=== PATIENT | female | born 1975 | race Asian ===

== ENCOUNTER 2018-12-04 12:00 | Emergency (ER) | payer SELFPAY ==
[~2018-12-04] VITALS: Ht 165.1 cm; Wt 57.3 kg
[2018-12-04 12:06] VITALS: Ht 165.1 cm; Wt 57.3 kg
[2018-12-04 12:35] LABS: BASOPHIL % 0.5 % (0-2); PLATELET COUNT 263 x10^3mcL (130-400)
[2018-12-04 12:37] LABS: RED CELL DISTRIBUTION WIDTH 20.6 % (11.5-14.5)
[2018-12-04 14:36] VITALS: BP 119/63
== END 2018-12-04 14:36 | disposition home or self-care (01) ==
LOC: ED 12:00
PROVIDERS: Emergency Medicine
DX: O03.9 Complete or unspecified spontaneous abortion without complication (principal)
CPT/HCPCS: 36415